=== PATIENT | male | born 1990 | race Caucasian/White ===

== ENCOUNTER 2017-12-01 21:44 | Emergency (ER) | payer BC ==
[~2017-12-01] VITALS: Ht 172.7 cm; Wt 92.0 kg
[2017-12-01 22:06] VITALS: TEMP 37.5; Ht 172.7 cm; Wt 92.0 kg
[2017-12-01] MEDS ORDERED: AMPH25CA PO (22:47)
[2017-12-01] MEDS ORDERED: IBUPROFEN 600 MG TAB PO STA (23:04)
[2017-12-01 23:11] VITALS: BP 150/102; PULSE 94; O2SAT 96
--- NOTE | 2017-12-01 23:23 | EMERGENCY ROOM VISIT NOTE ---
ED Visit Note First contact with patient: 22:10 CHIEF COMPLAINT: Elbow, forearm, wrist pain, fall from skateboard HISTORY OF PRESENT ILLNESS: This 27-year-old male patient presents to the emergency department, ambulatory, complaining of pain in the left forearm, wrist , and elbow after fall from skateboard. The patient states yesterday evening, he was riding his skateboard. He states he fell forward, and describes a fall on an outstretched left hand. The patient has been using ice, but states the pain was worse with the ice pack. He complains of pain in the left forearm, over the olecranon process, and in the left wrist. He describes a tightness in the left shoulder and upper arm, and believes this is from being in a shoulder sling. He rates the pain 9/10 and describes it as sharp with certain arm maneuvers. Pain is worse with pronation, extension at the elbow and gripping. Pain is lessened with abduction of the left arm. He did take 3 tablets of ibuprofen at 930 this morning, and states his pain did improve with this medication. He denies any recent illness, fever, nausea, or vomiting. He does have a tingling sensation at the distal fingertips, but this has began since using the arm sling. He denies any numbness, denies any previous injury or surgery. The patient denies any other injuries including head injury or loss of consciousness. REVIEW OF SYSTEMS: A 6 system review of systems was completed with positives and pertinent negatives listed in the HPI. ALLERGIES: None MEDICATIONS: Adderall PMH: ADHD SOCIAL HISTORY: The patient lives locally with family. He denies drug, alcohol , tobacco use. PHYSICAL EXAM: Vital Signs: Reviewed Nurse's notes, vital signs stable. GENERAL : This is a 27-year-old white male, in no acute distress, well-developed, well- nourished. SKIN: The skin was without rashes, erythema, edema, warmth, or bruising. Capillary reflex less than 3 seconds. MUSCULOSKELETAL: The patient is holding their elbow and a flexed and internally rotated position. There is tenderness over the olecranon process and lateral epicondyles of the left elbow. There is tenderness with full extension of the left elbow. The most significant tenderness is located in the mid shaft of the ulna. There is mild snuffbox tenderness. The patient does have full range of motion at the wrist and all fingers. The patient is able to give a thumbs up, make an OK sign, and a #3 with their fingers. Radial pulse 2+. NEURO: Patient was alert and oriented to person place and time. Normal sensation to light and sharp touch. RADIOLOGY: X-ray left forearm, wrist, and elbow: no obvious acute fracture or bony abnormality - per my interpretation EMERGENCY DEPARTMENT COURSE: I examined the patient. An x-ray of the left wrist , forearm, and elbow was reviewed myself and shows no obvious acute bony abnormality. I did offer the patient an Ortho-Glass sugar tong splint, but he declines. He does have an arm sling, and I recommended that he use the sling for comfort and until x-rays are further reviewed by the radiologist. The patient was agreeable. He was given 800 mg ibuprofen for pain and inflammation notes mild improvement in his symptoms. The patient does already have an arm sling. He did request a work note. Discharge instructions reviewed. The patient was discharged home in stable condition. I attest that I have personally reviewed the patient's current medication list. Patient was found to have normal blood pressure on screening and does not require follow-up. Etiologies such as soft tissue injury, fracture, dislocation, neurovascular compromise, compartment syndrome, as well as others were entertained. DIAGNOSIS: Fall from skateboard, left arm pain The chart was completed utilizing [employer] Speech voice recognition software. Grammatical errors, random word insertions, pronoun errors, and incomplete sentences are an occasional consequence of this system due to software limitations, ambient noise, and hardware issues. Any formal questions or concerns about the content, text, or information contained within the body of this dictation should be directly addressed to the provider for clarification. Current/Historical Medications Scheduled Amphetamine-Dextroamphetamine 25MG (Adderall Xr 25MG), 50 MG PO DAILY Allergies Coded Allergies: No Known Allergies (Unverified , 12/01/17) Vital Signs Date Time Temp Pulse Resp B/P (MAP) Pulse Ox O2 Delivery O2 Flow Rate FiO2 12/01/17 23:11 94 16 150/102 96 Room Air 12/01/17 22:06 37.5 105 18 136/83 97 Room Air Medications Administered Medications (Trade) Dose Ordered Sig/Vick Route Start Time Stop Time Status Last Admin Dose Admin Ibuprofen (Motrin Tab) 600 mg NOW STAT PO 12/01/17 23:04 12/01/17 23:05 DC 12/01/17 23:10 600 MG Departure Information Impression Primary Impression: Arm pain, left Additional Impression: Fall from skateboard, initial encounter Dispostion Home / Self-Care Condition GOOD Referrals No Doctor, Assigned (PCP) Richard Reid D.O. Patient Instructions ED Contusion Elbow, ED Sprain Wrist, My [facility] Additional Instructions You were seen in the ED today for left arm pain. As discussed, I do not see any obvious fractures on x-ray. This will be read by radiology in the morning. Ibuprofen(Motrin, Advil) may be used for fever or pain. Use 600mg every six hours as needed. Take with food. Avoid using more than 2400mg in a 24 hour period. Do not use 2400mg per day for more than three consecutive days without physician direction. Prolonged inappropriate use can lead to stomach upset or ulcers. (AND/OR) Acetaminophen(Tylenol) may be used for fever or pain. Use 1000mg every six hours as needed. Avoid using more than 3000mg in a 24 hour period. Ice compresses for 20 minutes at a time four times daily for 2-3 days. Use the sling as instructed. Remove your arm from the sling 4-6 times a day and move all the joints around to keep them loose. Rest and elevate your injury. Return to the ER immediately for any numbness, tingling, severe pain, extreme swelling in the extremity or as needed. Call [facility], [phone], if no improvement within 2-3 days, or tomorrow if you receive a phone call about a fracture, to arrange follow up for your injury. Follow-up with your primary care physician in 2 to 3 days for a recheck of your current condition. Problem Qualifiers
--- NOTE | 2017-12-02 07:14 | DIAGNOSTIC IMAGING REPORT ---
L FOREARM 2 VIEWS ROUTINE CLINICAL HISTORY: left forearm pain, FOOSH trauma. Pain. COMPARISON: None. DISCUSSION: Nondisplaced cortical fracture radial head and radial neck. Mild soft tissue edema. All remaining osseous structures are unremarkable IMPRESSION: Cortical fracture radial neck. The above report was generated using voice recognition software. It may contain grammatical, syntax or spelling errors. Electronically signed by: Antonio Strong M.D. 12/02/2017 7:13 AM Dictated Date/Time: 12/02/2017 7:11 AM
--- NOTE | 2017-12-02 07:15 | DIAGNOSTIC IMAGING REPORT ---
L ELBOW MIN 3 VIEWS ROUTINE CLINICAL HISTORY: left elbow pain trauma. Pain. COMPARISON: None. DISCUSSION: Nondisplaced transverse fracture radial neck. No evidence of dislocation. All remaining osseous structures are unremarkable. Small joint effusion. Mild soft tissue edema IMPRESSION: Nondisplaced fracture radial neck. Small joint effusion. The above report was generated using voice recognition software. It may contain grammatical, syntax or spelling errors. Electronically signed by: Antonio Strong M.D. 12/02/2017 7:14 AM Dictated Date/Time: 12/02/2017 7:13 AM
--- NOTE | 2017-12-02 07:21 | DIAGNOSTIC IMAGING REPORT ---
L WRIST W/NAVICULAR MIN 3 VIEWS CLINICAL HISTORY: left wrist/snuffbox pain, FOOSH trauma COMPARISON: None. DISCUSSION: The bones and joint spaces appear intact. There is no evidence of fracture, dislocation or bony disease. There is no evidence for soft tissue swelling. IMPRESSION: Negative study. The above report was generated using voice recognition software. It may contain grammatical, syntax or spelling errors. Electronically signed by: Antonio Strong M.D. 12/02/2017 7:19 AM Dictated Date/Time: 12/02/2017 7:18 AM
== END 2017-12-01 23:34 | disposition home or self-care (01) ==
LOC: C.EDB 21:45 → C.EDA 23:34
DX: M79.602 Pain in left arm (principal); V00.131A Fall from skateboard, initial encounter; Y93.51 Activity, roller skating (inline) and skateboarding; Y99.8 Other external cause status; F90.9 Attention-deficit hyperactivity disorder, unspecified type; Z79.899 Other long term (current) drug therapy

== ENCOUNTER 2019-06-15 18:46 | Observation (INO) ==
[2019-06-15] MEDS ORDERED: SODIUM CHLORIDE 0.9% 1000ML 1,000 ML IV SCH (19:43)
--- NOTE | 2019-06-15 19:47 | Emergency Department Note ---
History of Present Illness General Chief complaint: Abdominal Pain Stated complaint: LRQ PAIN Time Seen by Provider: 06/15/19 19:27 History of Present Illness Patient is a 29-year-old male who presents the emergency department for evaluation of right lower quadrant abdominal pain. His symptoms started last evening, roughly 24 hours ago. He noticed a soreness in the right lower abdomen. He had associated nausea, indigestion and dry heaves without vomiting. He took Tums for his symptoms. The pain persisted when he woke up this morning. He was able to go to work. He did not eat or drink very much today as he did not have much of an appetite. The pain has been getting worse. It is located in the right lower quadrant, does not radiate across the abdomen or around to the back. He rates his discomfort a 7/10. He states the pain radiates slightly to the groin on occasion. No dysuria or gross hematuria. He has taken Gas-X this afternoon and ibuprofen which have helped slightly. He does report 3 episodes of diarrhea today. He went to [facility], but only spoke with the nursing staff and was not evaluated by a practitioner. Home Medications Home Medications Medication Instructions Recorded Confirmed Type No Known Home Medications 06/15/19 06/15/19 History Allergies Allergy/AdvReac Type Severity Reaction Status Date / Time No Known Allergies Allergy Verified 06/15/19 22:16 Past Med/Surg History Medical History ADD (attention deficit disorder) (Chronic) Gout (Chronic) Surgical History No history of previous surgery (Chronic) Social History Current Living Situation: Alone current occupational status: employed Feels Safe at Home: Yes Smoking Status: Current every day smoker Review of Systems A total of 10 systems reviewed and were otherwise negative Physical Exam Vital Signs Vital Signs - 24 hr 06/15/19 18:48 06/15/19 21:14 Temperature 36.5 C Temperature Source Oral Pulse Rate 98 H Pulse Rate [Right] 71 Pulse Rhythm [Right] Regular Pulse Strength [Right] Normal Respiratory Rate 20 16 Respiratory Effort / Characteristics Non-Labored Spontaneous Respiratory Depth Normal Blood Pressure 144/89 H Blood Pressure [Right Arm] 128/70 Blood Pressure Mean 107 Blood Pressure Mean [Right Arm] 89 Blood Pressure Position Sitting Blood Pressure Position [Right Arm] Lying Pulse Oximetry 96 97 Oxygen Delivery Method Room Air Sepsis Recent Fever Within 48 Hours No Sepsis New/Unexplained Change in Mental Status No Sepsis Action Taken by Nursing No Action Required CONSTITUTIONAL: Patient is a well-appearing 29-year-old male who is awake and alert and in no acute distress. EYES: Pupils equal, round, reactive to light and accommodation. EOMs intact without nystagmus. Sclera are anicteric. ENT: Tympanic membranes intact, with normal landmarks. External canals are clear. Oral and nasopharynx are clear. Mucous membranes are moist, no lesions, tongue and gums appear normal. CARDIOVASCULAR: Regular rate and rhythm, with normal S1 and S2, no murmur or gallop or rub is heard. No carotid bruits auscultated. No JVD. Peripheral pulses easily palpable. RESPIRATORY: Breath sounds equal and clear to auscultation without wheezes, rales, or rhonchi heard. Full and equal chest expansion without accessory muscle use or retractions. ABDOMEN: Bowel sounds are present. Abdomen is soft, slightly obese, tender to percussion in the right lower quadrant and tender to palpation in the right lower quadrant over McBurney's point, with voluntary guarding. No rebound or referred rebound tenderness. No rigidity. INTEGUMENTARY: No lesions or rash, normal skin turgor. LYMPH: No lymphadenopathy. Course Course The patient was seen and assessed as above. Old records were reviewed. He presents to the emergency department for roughly 4 hours of right lower quadrant pain. He is tender in the right lower quadrant on exam. IV lock was initiated and laboratory studies were collected. CBC with differential, CMP, lipase and urinalysis were collected. He was hydrated with a liter bolus of normal saline solution. He was offered but declined medication for discomfort. CT scan of the abdomen and pelvis with IV contrast was obtained. Laboratory studies noted a slightly elevated white count of 11,400 with bandemia noted. Electrolytes, renal function and transaminases are normal. Lipase is not elevated. Urine microscopy notes 1+ ketones, otherwise is clear. CT scan of the abdomen and pelvis with IV contrast was concerning for early acute appendicitis. Patient was reviewed with attending physician. All laboratory and diagnostic imaging studies were reviewed with the patient. Patient was discussed with general surgery on-call, Dr. Valiente who presented to the emergency department and evaluated the patient. He will take the patient to the OR for surgical intervention. Patient was given 2 g of Mefoxin 10 in the emergency department preoperatively. Administered Medications Ioversol (Optiray 320 100ml) 93 ml IV ONCE PRN PRN Reason: Interaction Checking Stop: 06/19/19 21:27 Last Admin: 06/15/19 21:28 Dose: 93 ml Documented by: [id number] Discontinued Medications Sodium Chloride (Nss 1000ml) 1,000 mls @ 999 mls/hr IV .Q1H1M RUFINO Stop: 06/15/19 20:43 Last Infusion: 06/15/19 20:53 Dose: 0 mls/hr Documented by: [id number] Admin: 06/15/19 19:52 Dose: 999 mls/hr Documented by: [id number] Medical Decision Making Differential Diagnosis Differential diagnoses entertained included UTI, pyelonephritis, renal colic, appendicitis, mesenteric adenitis, hernia, shingles, muscle strain, orchitis, epididymitis, testicular torsion, among others. Medical Records Attestation: I reviewed the patient's medical records. Home Medications Current Medication List: was personally reviewed by me Laboratory Data Attestation: I reviewed the patient's lab results. Result diagrams: 06/15/19 19:31 06/15/19 19:31 Lab Results 06/15/19 06/15/19 06/15/19 Range/Units 19:31 19:31 19:31 WBC 11.43 H (4.8-10.8) K/uL RBC 5.61 (4.7-6.1) M/uL Hgb 18.2 H (14.0-18.0) g/dL Hct 49.0 (42-52) % MCV 87.3 (80-100) fL MCH 32.4 (25-34) pg MCHC 37.1 H (32-36) g/dL RDW Std Deviation 41.6 (36.4-46.3) fL RDW Coeff of Zack 13.0 (11.5-14.5) % Plt Count 275 (130-400) K/uL MPV 9.5 (7.4-10.4) fL Immature Gran % (Auto) 0.3 % Neut % (Auto) 48.7 % Lymph % (Auto) 34.5 % Larue % (Auto) 9.0 % Eos % (Auto) 7.0 % Baso % (Auto) 0.5 % Immature Gran # (Auto) 0.04 H (0.00-0.02) K/uL Neut # (Auto) 5.56 (1.4-6.5) K/uL Lymph # (Auto) 3.94 H (1.2-3.4) K/uL Larue # (Auto) 1.03 H (0.11-0.59) K/uL Eos # (Auto) 0.80 H (0-0.5) K/uL Baso # (Auto) 0.06 (0-0.2) K/uL Sodium 140 (136-145) mmol/L Potassium 3.7 (3.5-5.1) mmol/L Chloride 105 (98-107) mmol/L Carbon Dioxide 27 (21-32) mmol/L Anion Gap 8.0 (3-11) BUN 17 (7-18) mg/dl Creatinine 1.29 (0.6-1.4) mg/dl Est Cr Clr Drug Dosing Not Reportable Est GFR ( Amer) 87.5 Est GFR (Non-Af Amer) 75.5 BUN/Creatinine Ratio 13.4 (10-20) Glucose 83 (70-99) mg/dl Calcium 9.9 (8.5-10.1) mg/dl Total Bilirubin 0.4 (0.2-1) mg/dl AST 31 (15-37) U/L ALT 106 H (12-78) U/L Alkaline Phosphatase 81 (45-117) U/L Total Protein 8.0 (6.4-8.2) gm/dl Albumin 4.4 (3.4-5.0) gm/dl Globulin 3.6 (2.5-4.0) gm/dl Albumin/Globulin Ratio 1.2 (0.9-2) Lipase 86 (73-393) U/L Urine Color Dark Yellow Urine Appearance Clear (Clear) Urine pH 5.0 (4.5-7.5) Ur Specific [place] 1.034 H (1.000-1.030) Urine Protein Negative (Negative) Urine Glucose (UA) Negative (Negative) Urine Ketones 1+ H (Negative) Urine Blood Negative (Negative) Urine Nitrite Negative (Negative) Urine Bilirubin Negative (Negative) Urine Urobilinogen Negative (Negative) Ur Leukocyte Esterase Negative (Negative) Imaging Data Attestation: I personally reviewed and interpreted this imaging study as follows: Radiologist's Impression: ABDOMEN AND PELVIS CT WITH IV CONTRAST CT DOSE: 824.62 mGy.cm HISTORY: Acute right lower quadrant abdominal pain RLQ PAIN X 24 HOURS TECHNIQUE: Multiaxial CT images of the abdomen and pelvis were performed following the IV administration of 93 cc of Optiray 320, A dose lowering technique was utilized adhering to the principles of ALARA. COMPARISON STUDY: None. FINDINGS: Clear lung bases. There is no pneumatosis or pneumoperitoneum. The imaged inferior cardiac chambers appear unremarkable. Severe hepatic steatosis with hepatomegaly. No evidence of cirrhosis or focal hepatic mass lesion. Patency of the hepatic and portal veins. Unremarkable spleen, gallbladder, pancreas and adrenal glands. Probable cyst of the inferior pole left kidney, 6 mm. Kidneys ot herwise appear unremarkable. No obstructive uropathy. Mild nonspecific urinary bladder wall thickening with partial distention. Aorta and IVC are unremarkable. There is no adenopathy. There is no bowel obstruction. Mild colonic diverticulosis without acute diverticulitis. The proximal and mid appendix appears normal and is air-filled. There is minimal inflammatory stranding surrounding the prominent appendiceal tip which measures 6 mm transversely. Soft tissues are unremarkable. Bones appear intact. Mild erosive change of the bilateral SI joints. This appears symmetric. IMPRESSION: 1. Mild inflammatory stranding surrounds the appendiceal tip which measures within the upper limits of normal. In the setting of acute right lower quadrant abdominal pain, these findings are suspicious for very early developing acute appendicitis. 2. Mild colonic diverticulosis without acute diverticulitis. 3. Hepatomegaly with severe hepatic steatosis. 4. Symmetric bilateral sacroiliitis. Blood Pressure Blood Pressure Findings: Normal blood pressure Blood Pressure Disposition: did not require urgent referral MDM Narrative See ED course. Impression & Plan Acute appendicitis Discharge Plan Visit Data Chief Complaint: Abdominal Pain Stated Complaint: LRQ PAIN ED Provider: Rohan Bell ED Midlevel Provider: Patrica Price Discharge Problem: Acute appendicitis Patient Disposition: Being Evaluated by Surgeon Forms Stand Alone Forms: [employer] Prescriptions Prescriptions: No Action No Known Home Medications RF: 0 Referrals Referrals: PCP,NO [Primary Care Provider] - Discharge Problem: Acute appendicitis Qualifiers: Acute appendicitis type: with localized peritonitis Appendicitis gangrene presence: without gangrene Appendicitis perforation presence: without perforation Appendicitis abscess presence: without abscess Qualified Code(s): K35.30 - Acute appendicitis with localized peritonitis, without perforation or gangrene
[2019-06-15 19:57] LABS: Basophils # (auto) 0.06 K/uL (0-0.2); Basophils % (auto) 0.5 %; Hemoglobin 18.2 g/dL (14.0-18.0); Immature Granulocytes # (auto) 0.04 K/uL (0.00-0.02); Immature Granulocytes % (auto) 0.3 %; Lymphocytes # (auto) 3.94 K/uL (1.2-3.4); Lymphocytes % (auto) 34.5 %; Mean Corpuscular Hemoglobin 32.4 pg (25-34); Mean Corpuscular Hgb Conc 37.1 g/dL (32-36); Mean Corpuscular Volume 87.3 fL (80-100); Mean Platelet Volume 9.5 fL (7.4-10.4); Monocytes # (auto) 1.03 K/uL (0.11-0.59); Neutrophils # (auto) 5.56 K/uL (1.4-6.5); Neutrophils % (auto) 48.7 %; Platelet Count 275 K/uL (130-400); RDW Standard Deviation 41.6 fL (36.4-46.3); Red Blood Count 5.61 M/uL (4.7-6.1); White Blood Count 11.43 K/uL (4.8-10.8)
[2019-06-15 20:02] LABS: Appearance Urine Clear (Clear); Bilirubin Urine Negative (Negative); Blood Urine Negative (Negative); Color Urine Dark Yellow; Glucose Urine UA Negative (Negative); Ketones Urine 1+ (Negative); Leukocyte Esterase Urine Negative (Negative); Nitrite Urine Negative (Negative); Protein Urine Negative (Negative); Specific Gravity Urine 1.034 (1.000-1.030); Urobilinogen Urine Negative (Negative)
[2019-06-15 20:17] LABS: Alanine Aminotransferase 106 U/L (12-78); Albumin Level 4.4 gm/dl (3.4-5.0); Aspartate Aminotransferase 31 U/L (15-37); BUN Creatinine Ratio 13.4 (10-20); Blood Urea Nitrogen 17 mg/dl (7-18); Calcium 9.9 mg/dl (8.5-10.1); Carbon Dioxide 27 mmol/L (21-32); Chloride 105 mmol/L (98-107); Est GFR (African American) 87.5; Est GFR (Non-African American) 75.5; Glucose 83 mg/dl (70-99); Lipase 86 U/L (73-393); Potassium 3.7 mmol/L (3.5-5.1); Sodium 140 mmol/L (136-145)
[2019-06-15 20:20] LABS: Albumin Globulin Ratio 1.2 (0.9-2); Alkaline Phosphatase 81 U/L (45-117); Bilirubin,Total 0.4 mg/dl (0.2-1); Globulin 3.6 gm/dl (2.5-4.0)
[2019-06-15] MEDS ORDERED: IOVERSOL 100ml IV PRN (21:28)
--- NOTE | 2019-06-15 21:43 | CT Scan Report ---
ABDOMEN AND PELVIS CT WITH IV CONTRAST CT DOSE: 824.62 mGy.cm HISTORY: Acute right lower quadrant abdominal pain RLQ PAIN X 24 HOURS TECHNIQUE: Multiaxial CT images of the abdomen and pelvis were performed following the IV administrat ion of 93 cc of Optiray 320, A dose lowering technique was utilized adhering to the principles of AL DANIEL. COMPARISON STUDY: None. FINDINGS: Clear lung bases. There is no pneumatosis or pneumoperitoneum. The imaged inferior cardiac chambers a ppear unremarkable. Severe hepatic steatosis with hepatomegaly. No evidence of cirrhosis or focal hep atic mass lesion. Patency of the hepatic and portal veins. Unremarkable spleen, gallbladder, pancreas and adrenal glands. Probable cyst of the inferior pole left kidney, 6 mm. Kidneys otherwise appear u nremarkable. No obstructive uropathy. Mild nonspecific urinary bladder wall thickening with partial d istention. Aorta and IVC are unremarkable. There is no adenopathy. There is no bowel obstruction. Mild colonic diverticulosis without acute diverticulitis. The proximal and mid appendix appears normal and is air-filled. There is minimal inflammatory stranding surroundi ng the prominent appendiceal tip which measures 6 mm transversely. Soft tissues are unremarkable. Bon es appear intact. Mild erosive change of the bilateral SI joints. This appears symmetric. IMPRESSION: 1. Mild inflammatory stranding surrounds the appendiceal tip which measures within the upper limits o f normal. In the setting of acute right lower quadrant abdominal pain, these findings are suspicious for very early developing acute appendicitis. 2. Mild colonic diverticulosis without acute diverticulitis. 3. Hepatomegaly with severe hepatic steatosis. 4. Symmetric bilateral sacroiliitis. Electronically signed by: Chad Weston M.D. 06/15/2019 9:42 PM
[2019-06-15] MEDS ORDERED: cefOXitin 2,000 MG/60 ML BAG IV STA (22:18)
[2019-06-15] MEDS ORDERED: BUPIVACAINE 0.5 % 5 MG/1 ML MPF 30ML VIAL ONE (22:20)
--- NOTE | 2019-06-15 22:22 | History & Physical Report ---
Date of Service June 15, 2019 Assessment & Plan (1) Acute appendicitis: 29-year-old male with signs and symptoms of likely early acute tip appendicitis. We discussed his options to include antibiotics versus surgery, and the patient elects for surgery. Plan for laparoscopic appendectomy The risk of the procedure were discussed to include but not limited to bleeding, infection, conversion open, normal appendix, need for future more extensive surgery, damage to surrounding structures, abscess, and the risks of anesthesia Preop antibiotics The diagnosis, details the procedure and recovery, and plan of care discussed the patient, all questions were answered, the patient expressed understanding and agrees with the plan of care as stated. (2) Smoker: History of Present Illness Primary Care Provider: NO PCP 29-year-old male presented to the emergency department with right lower quadrant pain starting yesterday. Pain persisted today, he tried Gas-X but it made it worse. He reports some nausea and anorexia. Denies any fevers. Did have some loose bowel movements. No similar episodes in the past. Allergies Allergy/AdvReac Type Severity Reaction Status Date / Time No Known Allergies Allergy Verified 06/15/19 22:16 Home Medications Home Medications Medication Instructions Recorded Confirmed Type No Known Home Medications 06/15/19 06/15/19 History Past Med/Surg History Medical History ADD (attention deficit disorder) (Chronic) Gout (Chronic) Surgical History No history of previous surgery (Chronic) Social History Current Living Situation: Alone current occupational status: employed Feels Safe at Home: Yes Smoking Status: Current every day smoker Review of Systems Review of Systems: All systems reviewed & are unremarkable except as noted in HPI & below Physical Exam Constitutional: WD/WN, vitals as above Eyes: PERRL, conjunctivae normal, anicteric sclerae ENMT: external ear and nose normal, oropharynx normal Neck: trachea midline, no thyromegaly Respiratory: normal respiratory effort, lungs clear to auscultation Cardiovascular: RRR, no murmur, no edema Gastrointestinal (Abdomen): Percussion/Palpation: + abdomen tender (Tender to palpation of the right lower quadrant with localized guarding) and abdomen soft; abdomen not rigid and no hernia Musculoskeletal: no cyanosis or clubbing, extremities motor strength 5/5 Skin: no rashes, warm and dry Neurologic: PERRL, EOMI, accommodation nl, no face palsy, no dysarthria Psychiatric: A+Ox3, euthymic affect Lymphatic: no cervical or axillary lymphadenopathy Results & Data Vital Signs (Past 12 Hours) Vital Signs Temp Pulse Pulse Resp BP BP Pulse Ox 06/15/19 21:14 71 16 128/70 97 06/15/19 18:48 36.5 C 98 H 20 144/89 H 96 Laboratory Results Laboratory Results - last 24 hr 06/15/19 06/15/19 06/15/19 19:31 19:31 19:31 WBC 11.43 H RBC 5.61 Hgb 18.2 H Hct 49.0 MCV 87.3 MCH 32.4 MCHC 37.1 H RDW Std Deviation 41.6 RDW Coeff of Zack 13.0 Plt Count 275 MPV 9.5 Immature Gran % (Auto) 0.3 Neut % (Auto) 48.7 Lymph % (Auto) 34.5 Guthrie % (Auto) 9.0 Eos % (Auto) 7.0 Baso % (Auto) 0.5 Immature Gran # (Auto) 0.04 H Neut # (Auto) 5.56 Lymph # (Auto) 3.94 H Guthrie # (Auto) 1.03 H Eos # (Auto) 0.80 H Baso # (Auto) 0.06 Sodium 140 Potassium 3.7 Chloride 105 Carbon Dioxide 27 Anion Gap 8.0 BUN 17 Creatinine 1.29 Est Cr Clr Drug Dosing Not Reportable Est GFR ( Amer) 87.5 Est GFR (Non-Af Amer) 75.5 BUN/Creatinine Ratio 13.4 Glucose 83 Calcium 9.9 Total Bilirubin 0.4 AST 31 ALT 106 H Alkaline Phosphatase 81 Total Protein 8.0 Albumin 4.4 Globulin 3.6 Albumin/Globulin Ratio 1.2 Lipase 86 Urine Color Dark Yellow Urine Appearance Clear Urine pH 5.0 Ur Specific [place] 1.034 H Urine Protein Negative Urine Glucose (UA) Negative Urine Ketones 1+ H Urine Blood Negative Urine Nitrite Negative Urine Bilirubin Negative Urine Urobilinogen Negative Ur Leukocyte Esterase Negative Diagnostic Findings ABDOMEN AND PELVIS CT WITH IV CONTRAST CT DOSE: 824.62 mGy.cm HISTORY: Acute right lower quadrant abdominal pain RLQ PAIN X 24 HOURS TECHNIQUE: Multiaxial CT images of the abdomen and pelvis were performed following the IV administration of 93 cc of Optiray 320, A dose lowering technique was utilized adhering to the principles of ALARA. COMPARISON STUDY: None. FINDINGS: Clear lung bases. There is no pneumatosis or pneumoperitoneum. The imaged inferior cardiac chambers appear unremarkable. Severe hepatic steatosis with hepatomegaly. No evidence of cirrhosis or focal hepatic mass lesion. Patency of the hepatic and portal veins. Unremarkable spleen, gallbladder, pancreas and adrenal glands. Probable cyst of the inferior pole left kidney, 6 mm. Kidneys otherwise appear unremarkable. No obstructive uropathy. Mild nonspecific urinary bladder wall thickening with partial distention. Aorta and IVC are unremarkable. There is no adenopathy. There is no bowel obstruction. Mild colonic diverticulosis without acute diverticulitis. The proximal and mid appendix appears normal and is air-filled. There is minimal inflammatory stranding surrounding the prominent appendiceal tip which measures 6 mm transversely. Soft tissues are unremarkable. Bones appear intact. Mild erosive change of the bilateral SI joints. This appears symmetric. IMPRESSION: 1. Mild inflammatory stranding surrounds the appendiceal tip which measures within the upper limits of normal. In the setting of acute right lower quadrant abdominal pain, these findings are suspicious for very early developing acute appendicitis. 2. Mild colonic diverticulosis without acute diverticulitis. 3. Hepatomegaly with severe hepatic steatosis. 4. Symmetric bilateral sacroiliitis. PG Care Time/CCT Total # of Minutes Spent Total Time Spent with Patient: Total time spent is greater than 50% in coordination of care (as documented) at patient's floor/unit and/or counseling patient: (1) Acute appendicitis Acute appendicitis type: with localized peritonitis Appendicitis abscess presence: without abscess Appendicitis gangrene presence: without gangrene Appendicitis perforation presence: without perforation Qualified Code(s): K35.30 - Acute appendicitis with localized peritonitis, without perforation or gangrene
[2019-06-15] MEDS ORDERED: MEPERIDINE HCL 25 MG/ML CARP IV PRN (22:51)
[2019-06-15] MEDS ORDERED: LABETALOL HCL IV 5 MG/ML 20ML IV PRN (22:51)
[2019-06-15] MEDS ORDERED: ePHEDrine sulfate 50 MG/ML AMP IV PRN (22:51)
[2019-06-15] MEDS ORDERED: fentaNYL citrate 100 MCG/2 ML VIAL IV PRN (22:51)
[2019-06-15] MEDS ORDERED: ATROPINE SULFATE 0.1 MG/ML 10ML SYR IV PRN (22:51)
[2019-06-15] MEDS ORDERED: ONDANSETRON INJ 2 MG/ML 2 ML VIAL IV PRN (22:51)
[2019-06-15] MEDS ORDERED: HYDROmorphone INJ 1 MG/ML SYRINGE IV PRN (22:51)
[2019-06-15] MEDS ORDERED: PHENYLEPHRINE 100MCG/ML 5ML SYR IV PRN (22:51)
--- NOTE | 2019-06-15 22:53 | Anesthesiology Consultation ---
Date of Service June 15, 2019 Assessment & Plan (1) Encounter for pre-operative examination: Chart Review Chart Review: Acceptable Risk for Surgery and Patient NOT seen in Pre Admission Testing Consults Requested none History Surgery Operation Date: 06/15/19 22:30 Proposed Procedures p Laparoscopic Appendectomy - Dawit Valiente DO, FACS Height/Weight Weight: 96.6 kg Allergies Allergy/AdvReac Type Severity Reaction Status Date / Time No Known Allergies Allergy Verified 06/15/19 22:16 Medications Home Medications Medication Instructions Recorded Confirmed Last Taken No Known Home Medications 06/15/19 06/15/19 Unknown Active Medications Generic Name Dose Route Start Last Admin Trade Name Freq PRN Reason Stop Dose Admin Cefoxitin Sodium 2,000 mg in 60 mls @ 100 mls/hr 06/15/19 22:18 06/15/19 22:28 Mefoxin IV 06/15/19 22:53 100 mls/hr NOW STA Administration Ioversol 93 ml 06/15/19 21:28 06/15/19 21:28 Optiray 320 100ml IV 06/19/19 21:27 93 ml ONCE PRN Administration Interaction Checking NPO Date Last Intake of Fluids: 06/15/19 Time Last Intake of Fluids: 18:00 Last Intake of Fluids Comment: Small cup of water for medication Date Last Intake of Solids: 06/15/19 Time Last Intake of Solids: 11:00 Past Medical History Medical History (Updated 06/15/19 @ 22:52 by Enrrique Eagle MD) ADD (attention deficit disorder) (Chronic) Gout (Chronic) Marijuana abuse Smoker Past Surgical History Surgical History No history of previous surgery (Chronic) Social History Smoking Status: Current every day smoker Physical Exam Vital Signs Last Vital Signs Temp 36.5 C 06/15/19 18:48 Pulse 71 06/15/19 22:27 Resp 16 06/15/19 22:27 BP 119/82 06/15/19 22:27 Pulse Ox 99 06/15/19 22:27 Testing Laboratory Results 06/15/19 19:31 06/15/19 19:31 Urine Color Dark Yellow 06/15/19 19:31 Urine Appearance Clear (Clear) 06/15/19 19:31 Urine pH 5.0 (4.5-7.5) 06/15/19 19:31 Ur Specific [place] 1.034 (1.000-1.030) H 06/15/19 19:31 Urine Protein Negative (Negative) 06/15/19 19: Urine Glucose (UA) Negative (Negative) 06/15/19 19:31 Urine Ketones 1+ (Negative) H 06/15/19 19:31 Urine Nitrite Negative (Negative) 06/15/19 19: Ur Leukocyte Esterase Negative (Negative) 06/15/19 19:31
[2019-06-15] MEDS ORDERED: MIDAZOLAM HCL 1 MG/ML 2ML VIAL ONE (22:55)
[2019-06-15] MEDS ORDERED: fentaNYL citrate 100 MCG/2 ML VIAL ONE ×2 (22:56→23:23)
[2019-06-15] MEDS ORDERED: DEXAMETHASONE SOD INJ 4 MG/ML VIAL ONE (23:13)
[2019-06-15] MEDS ORDERED: SUCCINYLCHOLINE 100MG/5ML SYR ONE (23:13)
[2019-06-15] MEDS ORDERED: ONDANSETRON INJ 2 MG/ML 2 ML VIAL ONE ×2 (23:13→23:42)
[2019-06-15] MEDS ORDERED: ROCURONIUM BROMID 50MG/5ML SYR ONE (23:13)
[2019-06-15] MEDS ORDERED: LIDOCAINE HCL 2% 2 ML VIAL/AMP(20MG/ML) INFIL ONE (23:13)
[2019-06-15] MEDS ORDERED: PROPOFOL IV EMULSION 10 MG/ML 20 ML VIAL IV ONE (23:13)
[2019-06-15] MEDS ORDERED: NEOSTIGMINE METHYLSULFATE 5 MG/5 ML SYR ONE (23:14)
[2019-06-15] MEDS ORDERED: GLYCOPYRROLATE 0.2 MG/ML VIAL ONE ×2 (23:14→23:56)
[2019-06-15] MEDS ORDERED: KETOROLAC 30 MG/ML VIAL ONE (23:38)
--- NOTE | 2019-06-15 23:53 | Operative Report ---
PG Post Operative Report Pre & Post Diagnosis Operation Date: 06/15/19 22:30 Pre-Op Diagnosis: Acute Appendicitis Post-Op Diagnosis: Acute Appendicitis I identified the patient and participated in the time-out.: Yes Procedure Operation Date: 06/15/19 22:30 Actual Procedures p Laparoscopic Appendectomy(Not Applicable) - Dawit Valiente DO, FACS Surgeon Dawit Valiente DO, FACS Information Technology Specialist none Estimated Blood Loss 3 Findings Consistent with Post-Op Diagnosis Acute to appendicitis with focal necrosis, no evidence of perforation Specimens Appendix Anesthesia Type General Complications none Disposition Accompanied Patient To Recovery: No Disposition: Recovery Room Indications 29-year-old male presented emergency department with signs and symptoms of acute appendicitis, plan for laparoscopic appendectomy. The risks of the procedure were discussed, all questions were answered, and the patient agreed to proceed with surgery as planned. Description of Procedure The patient was properly identified, consented, and taken to the operating room where he was placed in the supine position. General endotracheal anesthesia was induced. SCDs and a safety belt were placed. Preoperative antibiotics were administered. A Lopez catheter was placed. The patient's abdomen was prepped and draped in the standard sterile fashion. Surgical timeout was performed and all parties were in agreement that this was the correct patient and procedure to be performed and we continued as planned. A curvilinear infraumbilical incision was made with electrocautery and deepened down to the fascia with blunt dissection. The base of the umbilicus was grasped with a Brandi and elevated towards the ceiling. An incision was made in the midline fascia with a knife and entry into the peritoneum was confirmed. Stay suture of 0 Vicryl was placed and a Gordillo trocar was inserted. The abdomen was insufflated with carbon dioxide which the patient tolerated without incident. The laparoscope was inserted and no damage from initial trocar placement was noted, no gross abnormalities were noted within the 4 quadrants the abdomen. 5 mm ports were then placed in the left lower quadrant with care not to damage the epigastric vessels, and in the suprapubic midline with care not to damage the bladder. The patient was placed in Trendelenburg position and rotated towards the left. The tip of the appendix was adherent to the median umbilical ligament. The tip appeared necrotic but there was no evidence of perforation. The remainder of the appendix appeared normal. The small bowel was swept away from the right lower quadrant. The cecum was grasped with an atraumatic grasper exposing the base of the appendix. There was minimal reactive fluid in the pelvis. A window was created between the base of the appendix and the mesoappendix. A aguero loaded endoscopic stapler was then used to divide the appendix at its base. A aguero load was then used to divide the mesoappendix. Hemostasis was good. The appendix was placed in an Endo Catch bag and removed through the umbilical port site. The right lower quadrant and pelvis was irrigated and hemostasis was found to be good. 5 mm trochars were removed under direct visualization and the abdomen was allowed to collapse. The umbilical port site fascia was closed with 0 Vicryl suture. The wound was irrigated, and the skin of all ports was closed with 4-0 Monocryl subcuticular sutures. Dermabond was placed over the wounds. The Lopez catheter was removed, the patient was extubated in the operating room and taken to the PACU where he recovered without apparent incident. All sponge, instrument and needle counts were correct at the conclusion of the procedure. The patient tolerated the procedure well. I attest to the content of the Intraoperative Record and any orders documented therein. Any exceptions are noted below.
--- NOTE | 2019-06-16 00:26 | Anesthesiology Progress Note ---
Date of Service June 16, 2019 Anesthesia Post Procedure Vital Signs Vital Signs: Temp Pulse Pulse Resp BP BP Pulse Ox 06/16/19 00:23 36.0 C L 72 16 131/89 98 06/16/19 00:07 36.0 C L 72 16 144/92 H 98 06/15/19 22:27 71 16 119/82 99 06/15/19 21:14 71 16 128/70 97 06/15/19 18:48 36.5 C 98 H 20 144/89 H 96 Pain Intensity Right Abdomen: Pain Intensity: 2 Transfer of Care Handoff Completed per policy Notes Mental Status: alert / awake / arousable Patient Amnestic to Procedure: Yes Nausea / Vomiting: adequately controlled Pain: adequately controlled Airway Patency, RR, SpO2: stable & adequate BP & HR: stable & adequate Hydration State: stable & adequate Anesthetic Complications: no major complications apparent and Pt Satisfied with anesthetic care
[2019-06-16] MEDS ORDERED: OXYCODONE/ACETAMINOPHEN 5mg/325mg TAB PO PRN (01:13)
[2019-06-16] MEDS ORDERED: ONDANSETRON INJ 2 MG/ML 2 ML VIAL IV PRN (01:13)
[2019-06-16] MEDS ORDERED: DiphenhydrAMINE HCL 50 MG/ML VIAL IV PRN (01:13)
[2019-06-16] MEDS ORDERED: MoRPHine SULFATE 4 MG/ML 1 ML CARP\\VIAL IV PRN (01:13)
[2019-06-16] MEDS ORDERED: MoRPHine SULFATE 10 MG/ML CARP/VIAL IV PRN (01:13)
[2019-06-16] MEDS: LACTATED RINGER'S 1,000 ML IV SCH ×2 (01:35→09:28)
[2019-06-16] MEDS: OXYCODONE/ACETAMINOPHEN 5mg/325mg TAB PO PRN ×2 (01:35→07:50)
[2019-06-16] MEDS ORDERED: KETOROLAC 30 MG/ML VIAL IV SCH (02:00)
[2019-06-16] MEDS: cefOXitin 2,000 MG in DEXTROSE 5% 50 ML IV SCH ×2 (03:34→09:33)
[2019-06-16] MEDS ORDERED: KETOROLAC TROMETHAMINE 15 MG/ML VIAL IV SCH (06:00)
--- NOTE | 2019-06-16 08:27 | Anesthesiology Progress Note ---
Date of Service June 16, 2019 Anesthesia Post Procedure Vital Signs Vital Signs: Temp Pulse Pulse Pulse Pulse Resp BP 06/16/19 07:17 36.4 C L 96 H 16 06/16/19 04:00 36.5 C 84 16 06/16/19 03:00 36.7 C 89 16 06/16/19 02:00 36.5 C 71 16 06/16/19 01:10 36.8 C 71 18 06/16/19 01:05 36.8 C 71 14 06/16/19 00:57 36.4 C L 65 16 06/16/19 00:37 36.4 C L 65 16 06/16/19 00:27 36.4 C L 78 16 06/16/19 00:17 36.0 C L 72 16 06/16/19 00:07 36.0 C L 72 16 06/15/19 22:27 71 16 06/15/19 21:14 71 16 06/15/19 18:48 36.5 C 98 H 20 144/89 H BP Pulse Ox 06/16/19 07:17 125/75 97 06/16/19 04:00 116/68 94 06/16/19 03:00 121/69 95 06/16/19 02:00 122/75 95 06/16/19 01:10 136/81 95 06/16/19 01:05 136/81 95 06/16/19 00:57 123/78 98 06/16/19 00:37 124/67 94 06/16/19 00:27 139/75 98 06/16/19 00:17 131/89 98 06/16/19 00:07 144/92 H 98 06/15/19 22:27 119/82 99 06/15/19 21:14 128/70 97 06/15/19 18:48 96 Pain Intensity Right Abdomen: Pain Intensity: 10 Notes Mental Status: alert / awake / arousable and participated in evaluation Patient Amnestic to Procedure: Yes Nausea / Vomiting: adequately controlled Pain: adequately controlled Airway Patency, RR, SpO2: stable & adequate BP & HR: stable & adequate Hydration State: stable & adequate Anesthetic Complications: no major complications apparent and Pt Satisfied with anesthetic care Notes: Pt states he has some sensation when swallowing and some R sided pain upon inspiration. Discussed possibility of referred pain from laparoscopic procedure and throat sensation from ETT. Pt states he will let RN know if it does not subside. VSS.
[2019-06-16] MEDS ORDERED: NICOTINE 21 MG/24 HR TDSY TD SCH (10:30)
--- NOTE | 2019-06-16 10:45 | Surgery Progress Note ---
Date of Service June 16, 2019 Assessment & Plan (1) Acute appendicitis: POD1 laparoscopic appendectomy tolerated diet this AM pain well managed will send out on a 7 day course of augmentin for intraop findings okay for discharge to home instructed patient to follow up in clinic within 1-2 weeks okay to return to work Subjective Patient eager to go home. He tolerated regular food for breakfast without nausea/vomiting or abdominal pain. Physical Exam Physical Exam: awake/alert Respiratory: normal respiratory effort Gastrointestinal (Abdomen): Inspection/Auscultation: + abdomen distended (mild) and + abdominal surgical incision (c/d/i with dermabond covering) Percussion/Palpation: abdomen nontender Results & Data Vital Signs (Past 12 Hours) Vital Signs Temp Pulse Pulse Pulse Resp BP Pulse Ox 06/16/19 07:17 36.4 C L 96 H 16 125/75 97 06/16/19 04:00 36.5 C 84 16 116/68 94 06/16/19 03:00 36.7 C 89 16 121/69 95 06/16/19 02:00 36.5 C 71 16 122/75 95 06/16/19 01:10 36.8 C 71 18 136/81 95 06/16/19 01:05 36.8 C 71 14 136/81 95 06/16/19 00:57 36.4 C L 65 16 123/78 98 06/16/19 00:37 36.4 C L 65 16 124/67 94 06/16/19 00:27 36.4 C L 78 16 139/75 98 06/16/19 00:17 36.0 C L 72 16 131/89 98 06/16/19 00:07 36.0 C L 72 16 144/92 H 98 PG Care Time/CCT Total # of Minutes Spent Total Time Spent with Patient: Total time spent is greater than 50% in coordination of care (as documented) at patient's floor/unit and/or counseling patient: (1) Acute appendicitis Acute appendicitis type: with localized peritonitis Appendicitis abscess presence: without abscess Appendicitis gangrene presence: without gangrene Appendicitis perforation presence: without perforation Qualified Code(s): K35.30 - Acute appendicitis with localized peritonitis, without perforation or gangrene
--- NOTE | 2019-06-16 14:37 | Discharge Summary ---
Date of Service June 16, 2019 Admission HPI Per Admitting Provider 29-year-old male presented to the emergency department with right lower quadrant pain starting yesterday. Pain persisted today, he tried Gas-X but it made it worse. He reports some nausea and anorexia. Denies any fevers. Did have some loose bowel movements. No similar episodes in the past. Principal Diagnosis acute appendicitis Discharge Exam Respiratory normal respiratory effort Gastrointestinal (Abdomen) Inspection/Auscultation: + abdomen distended (mild) and + abdominal surgical incision (c/d/i with dermabond covering) Percussion/Palpation: abdomen nontender Discharge Data Allergies Allergy/AdvReac Type Severity Reaction Status Date / Time No Known Allergies Allergy Verified 06/15/19 22:16 Procedures Performed Operation Date: 06/15/19 22:30 Actual Procedures p Laparoscopic Appendectomy(Not Applicable) - Dawit Valiente DO, FACS Ordered Studies 06/15/19 19:43 CT abd pelvis IV con only Stat Hospital Course (1) Acute appendicitis: This a 29y M who presented to the [facility] ED on 06/15/19 with complaints of right lower quadrant abdominal pain. CT scan was obtained revealing signs concerning for early acute appendicitis. Patient was made NPO with IVF and pre- op abx. He was taken to the OR and underwent a laparoscopic appendectomy with Dr. Valiente. The patient tolerated the procedure well, see operative report for full details. The patient recovered in the PACU and was sent to the nursing floor in stable condition for overnight observation. The patient's diet was advanced as tolerated and pain was managed with prn pain medication. On 06/16 the patient was deemed stable for discharge to home. He was sent home on a course of augmentin for 7 days as intraop the tip of the appendix appeared necrotic. Patient expressed understanding. Incisions c/d/i. He was instructed to follow up in clinic within 1-2 weeks for a post op check. Total Time Total Time Spent Total Time Spent (In Minutes): 15 Discharge Plan Discharge Items Patient Disposition: Home - Self-Care Reason For Visit: APPENDICITIS Discharge Diagnosis: acute appendicitis Activity: Per Instructions section Lifting: No more than 10 pounds Bathing Comment: you may shower, no soaking in tubs Exercise/Sports: Wait until after follow-up appointment Driving/Machine Use: do not resume driving while taking narcotics for pain Non-emergency contact: Surgeon Call non-emergency contact if: you have any medication questions, your symptoms worsen, your pain is not controlled, your pain is worsening, your pain is unusual for you, your pain is concerning for you, your temperature is above 101.5, your wound has increased redness and your wound pain has increased Follow-up/Referrals: Dawit Valiente, GREGOR HUYNH [Physician] - (Please call to schedule follow up in clinic within 2 weeks. You may call the office sooner if you have any questions/concerns.) PCP,NO [Primary Care Provider] - Diet: Regular Addtl Attending Provider Instructions: Please complete your full course of antibiotics. Pending Studies at Discharge: No Stand-Alone Forms: My [facility] Floobits, Opioid Pain Management, Smoking Ce ssation Medications and DC Order Prescriptions: New oxycodone-acetaminophen [Percocet] 5-325 mg tablet 1 - 2 tab PO .every 4-6 hours PRN (Reason: pain, for initial therapy. max 8 per day) Qty: 15 RF: 0 amoxicillin-pot clavulanate [Augmentin] 875-125 mg tablet 1 tab PO BID Qty: 14 RF: 0 No Action No Known Home Medications RF: 0 Discharge Orders: Discharge Order (Routine); Ordered 06/16/19 Ordered By: Zahra Ragsdale/Other Patient Handouts: Quit Smoking Get Support Admission Data Admit Date/Time: 06/16/19 00:04 Attending Provider: Dawit Valiente Admit Provider: Dawit Valiente Primary Care Provider: PCP,NO Other Interventions: Discharge Summary Assessment (RN) Last Done: 06/16/19 11:09 DC Date/Time DO NOT enter until pt leaves facility: 06/16/19 11:35
== END 2019-06-16 11:35 | disposition home or self-care (01) ==
LOC: ED 18:46 → OR 22:32 → 3N 22:32